=== PATIENT | male | born 1970 | race Caucasian/White ===

== ENCOUNTER → 2021-02-27 02:32 | Outpatient (CLI) | payer OTHER, SELFPAY ==
[2021-02-27 16:22] LABS: SARS-CoV-2 RNA PCR Negative
== END ==
PROVIDERS: PCP Internal Medicine; Visit Provider Internal Medicine Gastroenterology
DX: Z01.812 Encounter for preprocedural laboratory examination (principal); Z20.822 Contact with and (suspected) exposure to COVID-19
CPT/HCPCS: C9803; U0003; U0005

== ENCOUNTER 2021-03-02 00:38 | Day surgery (SDC) | payer OTHER, SELFPAY ==
[2021-02-14 13:01] VITALS: BMI 26.5
[2021-03-02 06:59] VITALS: BP 131/92; PULSE 64; RESP 20; TEMP 36; O2SAT 100; BMI 26.4
[2021-03-02] MEDS: LACTATED RINGERS 1,000 ML 150 ML IV CONT (07:13)
--- NOTE | 2021-03-02 07:19 | WPDGICN ---
Assessment and Plan Assessment and plan (1) Encounter for screening colonoscopy: Code(s): Z12.11 - Encounter for screening for malignant neoplasm of colon Status: Acute (2) Family history of colon cancer in father: Code(s): Z80.0 - Family history of malignant neoplasm of digestive organs Status: Acute Assessment and Plan: Patient's father had colon cancer for this reason screening colonoscopy is advised now and should be considered at 5 year intervals in the future. GI Consult Note Consult date/time: 03/02/21 07:19 HPI: Anuel Goode is a 50 year old male Presents for screening colonoscopy. Patient reports that his weight appetite bowel movements are normal. His family history is significant that his father had colon cancer. Patient states his bowel habits are normally denies any bleeding. His weight has remained stable. Neoplasia screening suggested today. Review of Systems Review of Systems: All systems reviewed & are unremarkable except as noted in HPI and below PMFSH Social History Social History Smoking status: Never smoker Alcohol intake: current Drinks per week: 6 Substance use type: does not use Living arrangements: with family Meds Home Medications and Allergies Home Medications Medication Instructions Recorded Confirmed Type No Home Medications 02/14/21 03/02/21 History Allergies Allergy/AdvReac Type Severity Reaction Status Date / Time No Known Allergies Allergy Verified 03/02/21 06:58 Vital Signs Vital Signs - 24 hr 03/02/21 06:59 Temperature 96.8 F L Pulse Rate 64 Respiratory Rate 20 Blood Pressure 131/92 H Pulse Oximetry 100 Exam Narrative: Physical exam reveals patient be alert. Vital signs stable. HEENT exam is unremarkable. Patient is anicteric. Lungs are clear to auscultation and percussion. Heart is without murmur or extra sounds. Abdominal exam bowel sounds are present soft nontender with no organomegaly. Digital external rectal exam is normal.
--- NOTE | 2021-03-02 07:25 | WPDANESEPPF ---
Anes - Initial Pre Proc Eval Procedure: Operation Date: 03/02/21 08:00 Proposed Procedures p Screening Colonoscopy - Pa Edwards MD Date/Time: 03/02/21 07:25 Surgeon: Pa Edwards MD Pre Op Diagnosis: neoplasm screening, family hx of colon ca Patient Data Age: 50 Gender: M Height: 1.78 m Weight: 83.5 kg Last Vital Signs Temp 36.0 C L 03/02/21 06:59 Pulse 64 03/02/21 06:59 Resp 20 03/02/21 06:59 BP 131/92 H 03/02/21 06:59 Pulse Ox 100 03/02/21 06:59 Allergies Allergy/AdvReac Type Severity Reaction Status Date / Time No Known Allergies Allergy Verified 03/02/21 06:58 Home Medications Medication Instructions Recorded Confirmed Type No Home Medications 02/14/21 02/14/21 History Patient hx anesthesia problems: none Family hx anesthesia problems: none Results Review: All pre-operative results and documents have been reviewed as part of the pre-operative evaluation. [facility] Social History Social History Smoking status: Never smoker Alcohol intake: current Drinks per week: 6 Substance use type: does not use Living arrangements: with family Anes - Eval Final PreProcedure Day of Procedure 03/02/21 07:25 Patient weight: normal Heart: regular rate and rhythm Lungs: clear to auscultation Airway: Mallampati scale class II Neurological: alert and oriented Last oral intake: >/= 8 hours ASA classification: II Emergent: no Anesthetic plan: proceed Anesthesia type and monitoring: general GIVS and standard monitoring Results Review: All pre-operative results and documents have been reviewed as part of the pre-operative evaluation. Informed Consent: The patient's anesthetic plan and its attendant risks and benefits were discussed with the patient/family/POA. Questions were solicited and answers provided to the satisfaction of the patient/family/POA.
[2021-03-02 08:14] VITALS: BP 110/78; PULSE 67; RESP 24; O2SAT 100
[2021-03-02 08:24] VITALS: BP 104/69; PULSE 61; RESP 13; O2SAT 100
[2021-03-02 08:34] VITALS: BP 119/80; PULSE 61; RESP 16; O2SAT 100
== END 2021-03-02 08:44 | disposition home or self-care (01) ==
PROVIDERS: PCP Internal Medicine; Visit Provider Internal Medicine Gastroenterology
PROC: 0DJD8ZZ Inspection of Lower Intestinal Tract, Via Natural or Artificial Opening Endoscopic (ICD-10-PCS; CPT 45378; principal; 2021-03-02 08:00)
DX: Z12.11 Encounter for screening for malignant neoplasm of colon (principal); K64.8 Other hemorrhoids; Z80.0 Family history of malignant neoplasm of digestive organs
CPT/HCPCS: 45378; C9803; J2704; J7120; U0003; U0005